=== PATIENT | female | born 1960 | race Caucasian/White ===

== ENCOUNTER 2019-07-24 12:06 | Emergency (ER) | payer OTHER ==
[~2019-07-24] VITALS: Ht 172.7 cm; Wt 88.5 kg
[~2019-07-24 12:06] MED LIST: CHOLESTEROL MED
--- NOTE | 2019-07-24 12:06 | NUR ---
PT BIBA BLS TO ER BED 02
[2019-07-24 12:08] VITALS: BP 147/87
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
[2019-07-24] MEDS ORDERED: KETOROLAC 60 MG/2 ML VIAL IM ONE (12:30)
[2019-07-24] MEDS ORDERED: MORPHINE SULFATE 4 MG/ML SYR IM ONE (12:30)
--- NOTE | 2019-07-24 12:54 | NUR ---
IM MEDS GIVEN-NADR AT THIS TIME. PT SENT TO CT WITH TECH AAOX4 AT THIS TIME
--- NOTE | 2019-07-24 15:20 | NUR ---
ATTEMPTED TO APPLY SLING TO PATIENT. PATIENT DENIED STATING THAT SHE HAS ONE AT HOME ALREADY. ADVISED PATIENT OF THE REPERCUSSIONS OF NOT USING THE SLING. PATIENT DEMONSTRATES A VERBAL UNDERSTANDING.
[2019-07-24 15:35] VITALS: BP 132/65
--- NOTE | 2019-07-24 15:35 | NUR ---
Patient discharged with v/s stable. Written and verbal after care instructions given and explained. Patient alert, oriented and verbalized understanding of instructions. Ambulatory with steady gait. All questions addressed prior to discharge. ID band removed. Patient advised to follow up with PMD. Rx of TRAMADOL AND EC-NAPROSYN given. Patient educated on indication of medication including possible reaction and side effects. Opportunity to ask questions provided and answered. PT TO BE PICKED UP BY FAMILY MEMBER.
== END 2019-07-24 15:35 | disposition home or self-care (01) ==
LOC: MED 12:06
DX: S32.018A Other fracture of first lumbar vertebra, initial encounter for closed fracture (principal); M19.012 Primary osteoarthritis, left shoulder; I10 Essential (primary) hypertension; V19.69XA Unspecified pedal cyclist injured in collision with other motor vehicles in traffic accident, initial encounter; Y93.89 Activity, other specified; Y92.89 Other specified places as the place of occurrence of the external cause; Y99.8 Other external cause status; Z90.49 Acquired absence of other specified parts of digestive tract
CPT/HCPCS: 71046; 72040; 73030; 74176; 96372; 99284; J1885; J2270